=== PATIENT | female | born 1935 | race Caucasian/White ===

== ENCOUNTER → 2017-09-14 | Outpatient (CLI) | payer MEDICARE ==
--- NOTE | 2017-09-14 16:30 | MR ---
EXAMINATION TYPE: MR shoulder RT wo con DATE OF EXAM: 09/14/2017 COMPARISON: Prior right shoulder MRI July 02, 2015 HISTORY: Pain Right shoulder after fall 06/18/2017, Previous MRI on PACS TECHNIQUE: Multiplanar, multisequence imaging of the right shoulder is performed without contrast. FINDINGS: Some motion artifact degradation is redemonstrated making evaluation suboptimal. Rotator Cuff: There is full-thickness retracted tear of the supraspinatus tendon which is retracted t o level of acromioclavicular joint on current study. Infraspinatus tendon shows full-thickness retrac beverley tear also to level of the acromioclavicular joint. There is moderate to severe atrophy of both mu scle bulks. Teres minor muscle remains intact. Subscapularis tendon is intact. Acromioclavicular Joint: Moderate to severe spurring and joint space loss acromioclavicular joint rem ains present. Underlying fat plane is maintained. Glenohumeral Joint: High riding humeral head is noted consistent with chronic rotator cuff tear. Ther e is persistent moderate to large glenohumeral joint effusion. No significant spurring is seen. Labrum: The superior labrum remains blunted with abnormal signal, degenerative tear is felt present. Biceps Tendon: The long head of biceps is in normal location within bicipital groove on old MRI study . It cannot be localized within the bicipital groove on current study. Tear and/or dislocation is ashley pected. Bone marrow signal: No focal abnormal marrow signal is appreciated. Other: No additional significant abnormality is appreciated. IMPRESSION: 1. Now full-thickness retracted tears of supraspinatus and infraspinatus tendons felt fairly chronic in nature as there is high riding humeral head and muscular atrophy noted. 2. Superior labral tear, nonvisualization of long head of biceps tendon suggesting interval tearing a nd/or dislocation. 3. 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
== END | disposition home or self-care (01) ==
LOC: RADMRIMAIN 14:35
PROVIDERS: ATTEND Orthopaedic Surgery
DX: S46.011A Strain of muscle(s) and tendon(s) of the rotator cuff of right shoulder, initial encounter (principal); S43.491A Other sprain of right shoulder joint, initial encounter; M62.511 Muscle wasting and atrophy, not elsewhere classified, right shoulder; M19.011 Primary osteoarthritis, right shoulder